=== PATIENT | female | born 1965 | race Caucasian/White ===

== ENCOUNTER 2018-12-03 21:54 | Emergency (ER) | payer MEDICAID ==
[2018-12-03 22:28] VITALS: BMI 22.8
[2018-12-03 22:54] VITALS: RESP 18; TEMP 98.1; O2SAT 100
[2018-12-03 23:11] LABS: BASO # 0.04 K/mm3 (0.0-2.0); BASO % 0.6 % (0.0-3.0); EOS # 0.4 (0.0-0.7); EOS % 5.1 % (1.5-5.0); HEMOGLOBIN 11.8 g/dL (12.0-16.0); LYMPH # 3.6 (1.2-3.4); LYMPH % 52.5 % (22.0-35.0); MEAN CELL VOLUME 87.3 fl (80.0-105.0); MEAN CORPUSCULAR HEMOGLOBIN 28.8 pg (25.0-35.0); MEAN PLATELET VOLUME 10.7 fl (7.0-11.0); MONO # 0.4 (0.1-0.6); MONO % 5.8 % (1.0-6.0); RBC 4.1 10^6/uL (3.5-6.1); RED CELL DISTRIBUTION WIDTH 13.8 % (11.5-14.5); WHITE BLOOD COUNT 6.9 10^3/uL (4.5-11.0)
[2018-12-03 23:16] LABS: INR 1.04; PARTIAL THROMBOPLASTIN TIME 37.3 Seconds (26.9-38.3); PROTHROMBIN TIME 11.5 SECONDS (9.4-12.5)
[2018-12-03 23:21] LABS: ALB/GLOB RATIO 1.3 (1.1-1.8); ALBUMIN 4.4 g/dL (3.0-4.8); ALT/SGPT 11 U/L (7-56); AST/SGOT 29 U/L (14-36); BLOOD UREA NITROGEN 11 mg/dL (7-21); CALCIUM 10.4 mg/dL (8.4-10.5); GFR NON-AFRICAN AMERICAN > 60
--- NOTE | 2018-12-03 23:30 | ED PDOC ---
Arrival/HPI <TroyDaryn zamorano - Last Filed: 12/04/18 00:07> - General Historian: Patient - History of Present Illness Narrative History of Present Illness (Text): 12/03/18 23:32 53 y/o female with PMH of hypothyoidism, menopause (on estrogen therapy), presents to ED c/o right leg pain x 3 hours. States she felt a spontaneous pinching pain to her lateral right proximal lower leg and noticed an area of ecchymosis that was hard to palpation at first but is now soft. Denies trauma/injury, fever, chills, numbness, weakness, paresthesias, calf pain, calf swelling, fever, chills, nausea, vomiting, chest pain, SOB, palpitations, dizziness, or any other associated complaints. <Alana Daugherty - Last Filed: 12/04/18 02:56> - General Chief Complaint: Lower Extremity Problem/Injury Time Seen by Provider: 12/03/18 22:03 Past Medical History - Provider Review Nursing Documentation Reviewed: Yes - Reproductive Menopause: Yes - Endocrine/Metabolic Hx Hypothyroidism: Yes - Psychiatric Hx Substance Use: No <Alana Daugherty - Last Filed: 12/04/18 02:56> Family/Social History - Physician Review Nursing Documentation Reviewed: Yes Family/Social History: No Known Family HX Smoking Status: Never Smoked Hx Alcohol Use: No Hx Substance Use: No <Alana Daugherty - Last Filed: 12/04/18 02:56> Allergies/Home Meds <Troy,Daryn - Last Filed: 12/04/18 00:07> <Alana Daugherty - Last Filed: 12/04/18 02:56> Allergies/Adverse Reactions: Allergies No Known Allergies Allergy (Verified 12/03/18 22:28) Review of Systems - Review of Systems Constitutional: Normal. absent: Fevers Eyes: Normal. absent: Vision Changes ENT: Normal. absent: Sore Throat, Sinus Congestion Respiratory: Normal. absent: SOB, Cough Cardiovascular: Normal. absent: Chest Pain, Palpitations, Syncope Gastrointestinal: Normal. absent: Abdominal Pain, Nausea, Vomiting Musculoskeletal: Other (right leg pain, bruising). absent: Back Pain, Neck Pain Skin: Normal Neurological: Normal. absent: Headache, Dizziness, Focal Weakness, Gait Changes, Disequilibrium <Brian Daughertyyssa - Last Filed: 12/04/18 02:56> Physical Exam Vital Signs Temp Pulse Resp BP Pulse Ox 12/03/18 22:47 98.1 F 61 18 118/67 100 <Daryn Simmons - Last Filed: 12/04/18 00:07> Vital Signs Reviewed: Yes Vital Signs Temp Pulse Resp BP Pulse Ox 12/03/18 22:47 98.1 F 61 18 118/67 100 Temperature: Afebrile Blood Pressure: Normal Pulse: Regular Respiratory Rate: Normal Appearance: Positive for: Well-Appearing, Non-Toxic, Comfortable Pain Distress: None Mental Status: Positive for: Alert and Oriented X 3 - Systems Exam Head: Present: Atraumatic, Normocephalic Pupils: Present: PERRL Extroacular Muscles: Present: EOMI Conjunctiva: Present: Normal Mouth: Present: Moist Mucous Membranes Neck: Present: Normal Range of Motion. No: Meningeal Signs Respiratory/Chest: Present: Clear to Auscultation, Good Air Exchange. No: Respiratory Distress, Accessory Muscle Use Cardiovascular: Present: Regular Rate and Rhythm, Normal S1, S2, Peripheal Pulses Present Back: Present: Normal Inspection. No: CVA Tenderness, Midline Tenderness, Paraspinal Tenderness Upper Extremity: Present: Normal Inspection, Normal ROM, NORMAL PULSES, Neurovascularly Intact, Capillary Refill < 2s. No: Cyanosis, Edema, Temperature Abnormalties Lower Extremity: Present: NORMAL PULSES, Normal ROM, Tenderness (over ecchymosis), Neurovascularly Intact, Capillary Refill < 2 s, Other ([id number] area of ecchymosis to right lateral proximal lower leg with varicose veins bilaterally). No: Edema, CALF TENDERNESS, Temperature Abnormalties Neurological: Present: GCS=15, CN II-XII Intact, Speech Normal, Motor Func Grossly Intact, Normal Sensory Function, Gait Normal Skin: Present: Warm, Dry, Normal Color. No: Rashes Psychiatric: Present: Alert, Oriented x 3, Normal Insight, Normal Concentration, Normal Affect, Normal Mood <Brian Daughertyyssa - Last Filed: 12/04/18 02:56> Medical Decision Making - Lab Interpretations Lab Results: PT 11.5 SECONDS (9.4-12.5) 12/03/18 22:58 INR 1.04 12/03/18 22:58 APTT 37.3 Seconds (26.9-38.3) 12/03/18 22:58 Total Bilirubin 0.2 mg/dL (0.2-1.3) 12/03/18 22:58 AST 29 U/L (14-36) 12/03/18 22:58 ALT 11 U/L (7-56) 12/03/18 22:58 Alkaline Phosphatase 66 U/L (38-126) 12/03/18 22:58 Total Protein 7.8 g/dL (5.8-8.3) 12/03/18 22:58 Albumin 4.4 g/dL (3.0-4.8) 12/03/18 22:58 Globulin 3.4 gm/dL 12/03/18 22:58 Albumin/Globulin Ratio 1.3 (1.1-1.8) 12/03/18 22:58 - RAD Interpretation Radiology Orders: 12/03/18 22:28 DUPLEX LOWER EXTRM VEIN RIGHT [US] Stat <Daryn Simmons - Last Filed: 12/04/18 00:07> ED Course and Treatment: Initial Plan: * CBC, CMP * Coags * Right leg venous duplex 23:30 Bloodwork reviewed, mild anemia; otherwise unremarkable 00:38 Prelim venous duplex read as negative. Ecchymosis has not worsened during patient's visit. Advised vascular and PMD followup. Diagnostic testing results and plan of care discussed with patient. Strict instructions given regarding prescription use, importance of followup, and signs/symptoms to return to ER including numbness, weakness, paresthesias, SOB, or any other new/worsening symptoms. Pt verbalized understanding of discussion. Patient is A&Ox3, ambulating with steady gait, with vital signs stable for discharge. - Lab Interpretations Lab Results: PT 11.5 SECONDS (9.4-12.5) 12/03/18 22:58 INR 1.04 12/03/18 22:58 APTT 37.3 Seconds (26.9-38.3) 12/03/18 22:58 Total Bilirubin 0.2 mg/dL (0.2-1.3) 12/03/18 22:58 AST 29 U/L (14-36) 12/03/18 22:58 ALT 11 U/L (7-56) 12/03/18 22:58 Alkaline Phosphatase 66 U/L (38-126) 12/03/18 22:58 Total Protein 7.8 g/dL (5.8-8.3) 12/03/18 22:58 Albumin 4.4 g/dL (3.0-4.8) 12/03/18 22:58 Globulin 3.4 gm/dL 12/03/18 22:58 Albumin/Globulin Ratio 1.3 (1.1-1.8) 12/03/18 22:58 12/03/18 22:58 12/03/18 22:58 Lab Results 12/03/18 22:58: Sodium 139, Potassium 4.0, Chloride 104, Carbon Dioxide 26, Anion Gap 13, BUN 11, Creatinine 0.6 L, Est GFR ( Amer) > 60, Est GFR (Non-Af Amer) > 60, Random Glucose 89, Calcium 10.4, Total Bilirubin 0.2, AST 29, ALT 11, Alkaline Phosphatase 66, Total Protein 7.8, Albumin 4.4, Globulin 3. 4, Albumin/Globulin Ratio 1.3 12/03/18 22:58: PT 11.5, INR 1.04, APTT 37.3 12/03/18 22:58: WBC 6.9, RBC 4.10, Hgb 11.8 L, Hct 35.8 L, MCV 87.3, MCH 28.8, MCHC 33.0, RDW 13.8, Plt Count 247, MPV 10.7, Neut % (Auto) 36.0 L, Lymph % (Auto) 52.5 H, [place] % (Auto) 5.8, Eos % (Auto) 5.1 H, Baso % (Auto) 0.6, Lymph # (Auto) 3.6 H, [place] # (Auto) 0.4, Eos # (Auto) 0.4, Baso # (Auto) 0.04, Absolute Neuts (auto) 2.47 12/03/18 22:58 12/03/18 22:58 Lab Results 12/03/18 22:58: Sodium 139, Potassium 4.0, Chloride 104, Carbon Dioxide 26, Anion Gap 13, BUN 11, Creatinine 0.6 L, Est GFR ( Amer) > 60, Est GFR (Non-Af Amer) > 60, Random Glucose 89, Calcium 10.4, Total Bilirubin 0.2, AST 29, ALT 11, Alkaline Phosphatase 66, Total Protein 7.8, Albumin 4.4, Globulin 3.4, Albumin/Globulin Ratio 1.3 12/03/18 22:58: PT 11.5, INR 1.04, APTT 37.3 12/03/18 22:58: WBC 6.9, RBC 4.10, Hgb 11.8 L, Hct 35.8 L, MCV 87.3, MCH 28.8, MCHC 33.0, RDW 13.8, Plt Count 247, MPV 10.7, Neut % (Auto) 36.0 L, Lymph % (Auto) 52.5 H, [place] % (Auto) 5.8, Eos % (Auto) 5.1 H, Baso % (Auto) 0.6, Lymph # (Auto) 3.6 H, [place] # (Auto) 0.4, Eos # (Auto) 0.4, Baso # (Auto) 0.04, Absolute Neuts (auto) 2.47 I have reviewed the lab results: Yes - RAD Interpretation Radiology Orders: 12/03/18 22:28 DUPLEX LOWER EXTRM VEIN RIGHT [US] Stat <Alana Daugherty - Last Filed: 12/04/18 02:56> - PA / [employer]PER[employer] / Resident Statement / has reviewed & agrees with the documentation as recorded. <Daryn Simmons - Last Filed: 12/04/18 00:07> Disposition/Present on Arrival <Daryn Simmons - Last Filed: 12/04/18 00:07> - Present on Arrival Any Indicators Present on Arrival: No History of DVT/PE: No History of Uncontrolled Diabetes: No Urinary Catheter: No History of Decub. Ulcer: No History Surgical Site Infection Following: None - Disposition Have Diagnosis and Disposition been Completed?: Yes Disposition Time: 00:38 Patient Plan: Discharge <Alana Daugherty - Last Filed: 12/04/18 02:56> - Disposition Diagnosis: Ruptured varicose vein Disposition: HOME/ ROUTINE Condition: STABLE Discharge Instructions (ExitCare): Varicose Veins and Other Vein Disease in the Legs, Treatment of Varicose Veins of the Leg Additional Instructions: Tylenol as needed for pain Cold compress over bruised area every hour for 15-20min Followup with vascular surgery within 2 days Followup with primary within 2 days Return to ER with any new/worsening symptoms Referrals: at [facility] [Outside] - Follow up with primary Clayton Almonte MD [Staff Provider] - Follow up with primary Genesis Delvalle MD [Medical Doctor] - Follow up with primary Forms: [facility] (Arabic), WORK NOTE
[2018-12-04 00:22] VITALS: BP 107/75; PULSE 60
--- NOTE | 2018-12-04 08:57 | US ---
PROCEDURE: Right lower extremity venous US HISTORY: Leg pain and swelling. Evaluate for DVT. PHYSICIAN(S): Endy Lizama M.D. TECHNIQUE: Duplex sonography and color-flow Doppler with graded compression were used to evaluate the deep venous system of the right lower extremity. FINDINGS: The visualized deep venous system of the right lower extremity is sonographically normal and compressible. Normal waveforms and augmentation are seen. There is no sonographic evidence for deep venous thrombosis in the visualized segments of the right lower extremity. IMPRESSION: 1. No sonographic evidence for deep venous thrombosis in the visualized segments of the right lower extremity.
== END 2018-12-04 00:52 | disposition home or self-care (01) ==
LOC: ED 21:54
DX: I83.91 Asymptomatic varicose veins of right lower extremity (principal); E03.9 Hypothyroidism, unspecified